=== PATIENT | female | born 1965 ===

== ENCOUNTER 2018-09-26 23:15 | Emergency (ER) | payer OTHER ==
[2018-09-27 00:31] VITALS: BP 165/99; PULSE 81; RESP 16; TEMP 98.4; O2SAT 96
[2018-09-27] MEDS ORDERED: Oxycodone/Acetaminophen 5/325 mg Tab PO STA (00:37)
[2018-09-27] MEDS ORDERED: Sodium Chloride 0.9% 1,000 ML IV SCH (00:45)
[2018-09-27] MEDS ORDERED: Oxycodone/Acetaminophen 5/325 mg Tab ONE (00:48)
[2018-09-27 01:28] LABS: BASO # 0.1 K/uL (0.0-0.2); BASO % 1.2 % (0.0-2.0); EOS # 0.1 K/uL (0.0-0.7); EOS % 0.8 % (0.0-4.0); HEMOGLOBIN 13.3 g/dL (12.0-16.0); LYMPH # 1.6 K/uL (1.0-4.3); LYMPH % 16.6 % (20.0-40.0); MEAN CELL VOLUME 86.5 fl (81.0-99.0); MEAN CORPUSCULAR HEMOGLOBIN 28.7 pg (27.0-31.0); MEAN CORPUSCULAR HGB CONC 33.2 g/dL (33.0-37.0); MEAN PLATELET VOLUME 8.7 fl (7.2-11.7); MONO # 0.7 K/uL (0.0-0.8); MONO % 7.3 % (0.0-10.0); NEUT # 7.2 K/uL (1.8-7.0); NEUT % 74.1 % (50.0-75.0); RBC 4.63 Mil/uL (3.80-5.20); RED CELL DISTRIBUTION WIDTH 14.1 % (11.5-14.5); WHITE BLOOD COUNT 9.7 K/uL (4.8-10.8)
[2018-09-27 01:38] LABS: ALB/GLOB RATIO 1.3 (1.0-2.1); ALBUMIN 4.4 g/dL (3.5-5.0); ALT/SGPT 39 U/L (9-52); AST/SGOT 31 U/L (14-36); BLOOD UREA NITROGEN 17 mg/dl (7-17); CALCIUM 9.7 mg/dL (8.4-10.2); GFR NON-AFRICAN AMERICAN > 60
--- NOTE | 2018-09-27 03:04 | ED PDOC ---
HPI: Back Time Seen by Provider: 09/27/18 00:27 Chief Complaint (Nursing): Back Pain Chief Complaint (Provider): Flank Pain History Per: Patient History/Exam Limitations: no limitations Onset/Duration Of Symptoms: Days (three) Current Symptoms Are (Timing): Still Present Quality Of Discomfort: Pressure, "Pain" Severity: Mild Additional Complaint(s): Pt presents to the ED complaining of left flank pain with an onset from two to three days ago; pt denies hx of kidney stones, urinary symptoms, fever, nausea vomiting and diarhhea Past Medical History Reviewed: Historical Data, Nursing Documentation, Vital Signs Vital Signs: Last Vital Signs Temp 98.4 F 09/27/18 00:28 Pulse 81 09/27/18 00:28 Resp 16 09/27/18 00:28 BP 165/99 H 09/27/18 00:28 Pulse Ox 96 09/27/18 00:28 - Medical History PMH: Denies: Chronic Kidney Disease - Surgical History Surgical History: - Family History Family History: States: Unknown Family Hx - Immunization History Hx Tetanus Toxoid Vaccination: No Hx Influenza Vaccination: No Hx Pneumococcal Vaccination: No - Home Medications Home Medications: Ambulatory Orders Medication Instructions Recorded Psyllium Husk [Metamucil] 40 gm PO DAILY #660 gm 09/27/18 - Allergies Allergies/Adverse Reactions: Allergies Allergy/AdvReac Type Severity Reaction Status Date / Time No Known Allergies Allergy Verified 09/27/18 00:28 Review of Systems ROS Statement: Except As Marked, All Systems Reviewed And Found Negative Musculoskeletal: Positive for: Back Pain Physical Exam - Reviewed Nursing Documentation Reviewed: Yes Vital Signs Reviewed: Yes - Physical Exam Appears: Positive for: Well, Non-toxic, No Acute Distress. Negative for: Uncomfortable, In Acute Distress Head Exam: Positive for: ATRAUMATIC, NORMAL INSPECTION Skin: Positive for: Normal Color, Warm, Dry. Negative for: Diaphoresis, Pallor, Rash Eye Exam: Positive for: Normal appearance, EOMI, PERRL. Negative for: Nystagmus, Periorbital swelling, Periorbital tenderness Neck: Positive for: Normal, Painless ROM, Supple. Negative for: Decreased ROM Cardiovascular/Chest: Positive for: Regular Rate, Rhythm Respiratory: Positive for: Normal Breath Sounds Pulses-Carotid (L): 2+ Pulses-Carotid (R): 2+ Pulses-Radial (L): 2+ Pulses-Radial (R): 2+ Gastrointestinal/Abdominal: Positive for: Normal Exam, Bowel Sounds, Soft. Negative for: Tenderness, Distended, Guarding, Rebound Back: Positive for: Normal Inspection, L CVA Tenderness. Negative for: R CVA Tenderness, Vertebral Tenderness, Decreased ROM, Muscle Spasm - Laboratory Results Result Diagrams: 09/27/18 01:11 09/27/18 01:11 Lab Results: Total Bilirubin 0.6 mg/dl (0.2-1.3) 09/27/18 01:11 AST 31 U/L (14-36) 09/27/18 01:11 ALT 39 U/L (9-52) 09/27/18 01:11 Alkaline Phosphatase 110 U/L (38-126) 09/27/18 01:11 Total Protein 7.9 G/DL (6.3-8.2) 09/27/18 01:11 Albumin 4.4 g/dL (3.5-5.0) 09/27/18 01:11 Globulin 3.4 gm/dL (2.2-3.9) 09/27/18 01:11 Albumin/Globulin Ratio 1.3 (1.0-2.1) 09/27/18 01:11 - ECG O2 Sat by Pulse Oximetry: 96 Medical Decision Making Medical Decision Making: CT RESULTS FINDINGS: The visualized lung bases are unremarkable. Normal unenhanced liver. Surgically absent gallbladder and extrahepatic biliary system. Normal unenhanced spleen. Normal pancreas. Normal bilateral adrenal glands. Normal size of the right kidney. There is no right renal mass. There are no right renal calculi. There is no right hydronephrosis. Normal visualized right ureter. Normal size of the left kidney. There is no left renal mass. There are no left renal calculi. There is no left hydronephrosis. Normal visualized left ureter. Normal visualized stomach. Normal small intestine. Uncomplicated diverticulosis with moderate amount of fecal residue in the colon. The appendix is visualized and appears normal. There is no demonstrated peritoneal fluid. Normal abdominal aorta. Normal inferior vena cava. Normal retroperitoneum. Normal urinary bladder. There is no pelvic mass lesion or lymphadenopathy. There is no pelvic fluid. Normal abdominal wall. Mild diffuse spondylosis. IMPRESSION: Constipation. Electronically signed on Sep 27, 2018 2:01:58 AM EST by: Eulogio Figueroa M.D., Certified by ABR, MSK, Neuroradiology Pt will be tx with fiber supplements Pt advised to follow up with PMD, Dr Fink, in two to three days, return to ED if symptoms persist or intensifiy Disposition - Clinical Impression Clinical Impression: Diverticulosis - Patient ED Disposition Is Patient to be Admitted: No Counseled Patient/Family Regarding: Studies Performed, Diagnosis, Need For Followup, Rx Given - Disposition Referrals: Shaik Fink MD [Family Provider] - Disposition: Routine/Home Disposition Time: 04:11 Condition: STABLE Prescriptions: Psyllium Husk [Metamucil] 40 gm PO DAILY #660 gm Instructions: Diverticulosis, Diverticulosis (DC) Forms: [email or web address] (Spanish), [employer] (Gibraltarian) Print Language: NAURUAN
[2018-09-27 03:40] LABS: PH,URINE 6.5 (5.0-8.0); URINE BILIRUBIN NEGATIVE (NEGATIVE); URINE BLOOD NEGATIVE (NEGATIVE); URINE CLARITY CLEAR (Clear); URINE COLOR STRAW (YELLOW); URINE GLUCOSE (UA) NEGATIVE (NEGATIVE); URINE PROTEIN NEGATIVE (NEGATIVE); URINE UROBILINOGEN 0.2 mg/dL (0.2-1.0)
[2018-09-27 03:41] LABS: URINE LEUKOCYTE ESTERASE NEGATIVE Leu/uL (Negative)
--- NOTE | 2018-09-27 11:52 | CT ---
Date of service: 09/27/2018 PROCEDURE: CT Abdomen and Pelvis without intravenous contrast HISTORY: r/o stones COMPARISON: None. TECHNIQUE: Contiguous images were obtained from the domes of the diaphragms to the upper thighs without the administration of intravenous contrast. Oral contrast was not administered. Radiation dose: Total exam DLP = 721.42 mGy-cm. This CT exam was performed using one or more of the following dose reduction techniques: Automated exposure control, adjustment of the mA and/or kV according to patient size, and/or use of iterative reconstruction technique. FINDINGS: LOWER THORAX: Unremarkable. LIVER: Scattered punctate hepatic granulomas. No gross lesion or ductal dilatation. GALLBLADDER AND BILE DUCTS: Prior cholecystectomy. PANCREAS: Unremarkable. No gross lesion or ductal dilatation. SPLEEN: Unremarkable. ADRENALS: Unremarkable. No mass. KIDNEYS AND URETERS: Unremarkable. No hydronephrosis. No solid mass. VASCULATURE: Unremarkable. No aortic aneurysm. No aortic atherosclerotic calcification or mural plaque present. BOWEL: Unremarkable. No obstruction. No gross mural thickening. APPENDIX: Unremarkable. Normal appendix. PERITONEUM: Unremarkable. No free fluid. No free air. LYMPH NODES: Unremarkable. No enlarged lymph nodes. BLADDER: Unremarkable. REPRODUCTIVE: Unremarkable. BONES: Grade 1 retrolisthesis of L4 on L5. No acute fracture. OTHER FINDINGS: None. IMPRESSION: No obstructive uropathy or evidence of recently passed genitourinary calculus.
== END 2018-09-27 04:30 | disposition home or self-care (01) ==
LOC: H.ER 23:15
DX: K57.90 Diverticulosis of intestine, part unspecified, without perforation or abscess without bleeding (principal)
CPT/HCPCS: 74176; 80053; 81003; 85025; 99283; J7030